=== PATIENT | male | born 1965 | race Caucasian/White ===

== ENCOUNTER 2019-12-07 20:26 | Emergency (ER) | payer SELFPAY ==
[~2019-12-07] VITALS: Ht 195.6 cm; Wt 122.5 kg
--- NOTE | 2019-12-08 12:13 | EKG ---
[facility] [address] [place], [place] [address] Signed Sinus rhythm with occasional premature ventricular complexes Lateral infarct , age undetermined Inferior injury pattern ACUTE [place] / STEMI Abnormal ECG No previous ECGs available Confirmed by JOCY MATHEW DO ([id number]) on 12/08/2019 12:12:59 PM Electronically Signed By: JOCY MATHEW DO 12/08/19 1213 PATIENT NAME: ANITA OSPINA HAMZAH Electrocardiogram DATE OF : 67 PHYSICIAN: JOCY MATHEW DO REPORT #: [id number] REPORT IS CONFIDENTIAL AND NOT TO BE RELEASED WITHOUT AUTHORIZATION
== END 2019-12-07 20:56 | disposition short-term general hospital (02) ==
LOC: ED 20:26
DX: I21.19 ST elevation (STEMI) myocardial infarction involving other coronary artery of inferior wall (principal); I10 Essential (primary) hypertension; Z87.891 Personal history of nicotine dependence
CPT/HCPCS: 71045; 80053; 83735; 84484; 85025; 93005; 93010; 96374; 99285-25; J1644